=== PATIENT | female | born 1945 | race American Indian/Alaskan Native ===

== ENCOUNTER 2016-04-10 22:12 | Emergency (ER) | payer MEDICARE ==
--- NOTE | 2016-04-10 22:37 | Emergency Department Report ---
ED Headache HPI - General Chief Complaint: Headache Stated Complaint: HEADACHE Time Seen by Provider: 04/10/16 22:26 Source: patient Exam Limitations: no limitations - History of Present Illness Initial Comments: 70-year-old female presents to the emergency department via EMS complaining of headache. Patient reports headache in the back of her head for the past 2 days. Symptoms have been intermittent. Patient describes a pulling sensation in the back of her head. Patient states this is different than any other headache she has ever had. The location and the description of the pain are different. She denies associated blurry vision, nausea, vomiting, numbness, or weakness. Patient states she has had headaches in the past due to elevated blood pressure, but she is taking her blood pressure as prescribed and it has not helped her headache. There are no other complaints. Timing/Duration: waxing and waning (2 days) Quality: moderate Head Injury Location: occipital Recent Head Trauma: no recent headache/trauma Associated Symptoms: denies symptoms Allergies/Adverse Reactions: Allergies No Known Allergies Allergy (Unverified 04/10/16 22:56) Home Medications: Ambulatory Orders Chlorphen/Dm/Acetaminophen/GG [Coricidin Hbp Day-Night Pack] 1 each PO PRN 04/10 Colesevelam [Welchol] 625 mg PO DAILY 04/10/16 Levothyroxine [Synthroid] 75 mcg PO QAM 04/10/16 Lisinopril/Hydrochlorothiazide [Zestoretic 20-25 mg] 1 tab PO QDAY 04/10/16 Potassium Chloride [Klor-Con M10] 10 meq PO BID 04/10/16 Pravastatin Sodium [Pravastatin] 10 mg PO QHS 04/10/16 amLODIPine [Norvasc] 5 mg PO DAILY 04/10/16 Butalb/Acetamin/Caff 50-325-40 [Fioricet] 1 each PO Q4H PRN #20 tablet 04/11/16 ED Review of Systems ROS: Stated complaint: HEADACHE Other details as noted in HPI Comment: All other systems reviewed and negative Eyes: denies: vision change Gastrointestinal: denies: nausea, vomiting Neurological: headache. denies: weakness, numbness, paresthesias ED Past Medical Hx - Past Medical History Previous Medical History?: Yes Hx Hypertension: Yes Additional medical history: Hyperthyroid, stomach ulcer - Surgical History Past Surgical History?: No - Family History Family history: no significant - Social History Smoking Status: Current Every Day Smoker Substance Use Type: Alcohol - Medications Home Medications: Home Medications Medication Instructions Recorded Confirmed Last Taken Type Chlorphen/Dm/Acetaminophen/GG 1 each PO PRN 04/10/16 04/10/16 Unknown History [Coricidin Hbp Day-Night Pack] Colesevelam [Welchol] 625 mg PO DAILY 04/10/16 04/10/16 Unknown History Levothyroxine [Synthroid] 75 mcg PO QAM 04/10/16 04/10/16 Unknown History Lisinopril/Hydrochlorothiazide 1 tab PO QDAY 04/10/16 04/10/16 Unknown History [Zestoretic 20-25 mg] Potassium Chloride [Klor-Con M10] 10 meq PO BID 04/10/16 04/10/16 Unknown History Pravastatin Sodium [Pravastatin] 10 mg PO QHS 04/10/16 04/10/16 Unknown History amLODIPine [Norvasc] 5 mg PO DAILY 04/10/16 04/10/16 Unknown History Butalb/Acetamin/Caff 50-325-40 1 each PO Q4H PRN #20 tablet 04/11/16 Unknown Rx [Fioricet] ED Physical Exam - General Limitations: No Limitations General appearance: alert, in no apparent distress - Head Head exam: Present: atraumatic, normocephalic, other (no tenderness to palpation ) - Eye Eye exam: Present: normal appearance, PERRL, EOMI - ENT ENT exam: Present: normal exam, normal orophraynx, mucous membranes moist - Neck Neck exam: Present: normal inspection, full ROM. Absent: tenderness - Respiratory Respiratory exam: Present: normal lung sounds bilaterally. Absent: respiratory distress - Cardiovascular Cardiovascular Exam: Present: regular rate, normal rhythm, normal heart sounds - GI/Abdominal GI/Abdominal exam: Present: soft, normal bowel sounds. Absent: distended, tenderness - Extremities Exam Extremities exam: Present: normal inspection, full ROM. Absent: tenderness - Back Exam Back exam: Present: normal inspection, full ROM. Absent: tenderness - Neurological Exam Neurological exam: Present: alert, oriented X3. Absent: motor sensory deficit - Skin Skin exam: Present: warm, dry, intact ED Course Vital Signs 04/10/16 22:23 Temperature 98.7 F Pulse Rate 63 Respiratory 19 Rate Blood Pressure 140/70 Blood Pressure 140/70 [Right] O2 Sat by Pulse 92 Oximetry ED Medical Decision Making - Radiology Data Radiology results: image reviewed interpreted by me: CT of the head shows calcifications of the choroid plexus. There is no acute intracranial abnormality. - Medical Decision Making Patient reports headache has resolved with medication. Patient will be discharged home at this time to follow up with her primary care physician. - Differential Diagnosis tension headache, migraine headache, ICH Critical care attestation.: If time is entered above; I have spent that time in minutes in the direct care of this critically ill patient, excluding procedure time. ED Disposition Clinical Impression: Acute headache Qualifiers: Headache type: unspecified Intractability: not intractable Qualified Code(s): R51 - Headache Disposition: DISCHARGED TO HOME OR SELFCARE Is pt being admited?: No Condition: Stable Instructions: Acute Headache (ED) Prescriptions: Butalb/Acetamin/Caff 50-325-40 [Fioricet] 1 each PO Q4H PRN #20 tablet PRN Reason: Headache Referrals: [facility] [Other] - 3-5 Days Time of Disposition: 00:40
[2016-04-10] MEDS: NACL 0.9% 1000 ML 1,000 ML IV ONE (23:13)
[2016-04-10] MEDS: REGLAN IV ONE (23:13)
--- NOTE | 2016-04-10 23:52 | Cat Scan Report ---
FINAL REPORT PROCEDURE: CT HEAD/BRAIN WO CON TECHNIQUE: Computerized tomography of the head was performed without contrast material. HISTORY: new onset headache COMPARISON: No prior studies are available for comparison. FINDINGS: Skull and scalp: Normal. Paranasal sinuses: Slight opacification the right frontal sinus. Ventricles and subarachnoid spaces: Normal. Cerebrum: No evidence of hemorrhage, acute infarction or mass . Cerebellum and brainstem: No evidence of hemorrhage, acute infarction or mass. Vasculature: Normal. Comments: None. IMPRESSION: There is no evidence of an acute intracranial process
[2016-04-11] MEDS: BENADRYL IV ONE (00:16)
[2016-04-11] MEDS: TORADOL IV ONE (00:17)
[2016-04-11 00:46] LABS: Bacteria,Urine 2+ /HPF (Negative); Bilirubin,Urine NEG (Negative); Blood,Urine SM (Negative); Ketones,Urine NEG (Negative); Leukocyte Esterase,Urine NEG (Negative); Mucus,Urine FEW /HPF; Nitrite,Urine POS (Negative); Protein,Urine <15 mg/dL mg/dL (Negative); Urobilinogen,Urine < 2.0 mg/dL (<2.0)
[2016-04-11 00:58] VITALS: BP 120/68
== END 2016-04-11 01:00 | disposition home or self-care (01) ==
LOC: ED 22:12
DX: R51 Headache (principal); I10 Essential (primary) hypertension; E05.90 Thyrotoxicosis, unspecified without thyrotoxic crisis or storm; F17.200 Nicotine dependence, unspecified, uncomplicated
CPT/HCPCS: 70450; 81001; 96361; 96374; 96375; 99284; J1200; J1885; J2765; J7030